=== PATIENT | female | born 1965 | race Hispanic/Latino ===

== ENCOUNTER 2022-02-03 15:58 | Emergency (ER) | payer SELFPAY ==
--- OUTSIDE RECORDS SUMMARY | 2022-02-03 16:02 | XMS REPORT | Continuity of Care Document ---
:1965 Author Organization [facility] t Address [address] [place] [address] Care Team Providers Name Role Phone Donysuni Jessica BARRETT Primary Care Physician Doctor Unassigned, [place] Attending Clinician Unavailable Problems Condition Condition Condition Status Onset Resolution Last Treating Co mments Source Name Details Category Date Date Treatment Clinician Date Diabetes Diabetes Disease Active Unive rs 2-18 ity of 00:00: [place] 00 Medical Branch Contracept Contracept Disease Active Overview : [facility] elodia elodia 08-19 Formattin ity of management management 00:00: g of this [place] 00 note Medical might be Branch different from the original. 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 Social History Social Habit Start Date Stop Date Quantity Comments Source History SDOH [facility] [place] Alcohol Frequency Medical Branch History SDOH [facility] [place] Alcohol Std Drinks Medica l Branch History [facility] [place] Alcohol Binge Medical Bra [facility] Alcohol intake 2016-01-07 2016-01-07 0 /d [facility] 00:00:00 00:00:00 Medical Branch Alcohol Comment 2015-08-19 2015-08-19 on occasion [facility] 00:00:00 00:00:00 Medical Branch Tobacco use and 2015-08-19 2015-08-19 Never used [facility] exposure 00:00:00 00:00:00 Medical Branch History of tobacco 1994-11-20 Smoker [facility] use 00:00:00 Medical Branch Sex Ass[birth year] At [birth year] [facility] y [facility] 00:00:00 00:00:00 Medical Branch Smoking Status Start Date Stop Date Source Former smoker 2015-08-19 00:00:00 2015-08-19 00:00:00 [facility] Medical Branch Medications Ordered Filled Start Stop Current Ordering Indication Dosage Frequency Signature Comments Components Source Medication Medication Date Date Medication? Clinician (SIG) Name Name Lancets Yes [id number] Use as Uni vers (UNILET 2-17 directed ity of LANCET) 00:00: [facility] 00 Medical Branch metFORMIN Yes [id number] 500mg Take 1 Tab Univers (GLUCOPHAGE 2-17 by mouth 2 it y of ) 500 mg 00:00: (two) [place] tablet 00 times Medical daily with Branch meals. Immunizations Ordered Filled Immunization Date Status Comments Sour e Immunization Name Name TDAP 2015-08-19 [facility] 00:00:00 [facility] Procedures Procedure Date / Time Performed Performing Clinician Sour e EXTERNAL PROVIDER - 2021-07-30 05:01:00 Doctor Unassigned, No Un [facility] REFERRAL Name Medical Branch Encounters Start End Encounter Admission Attending Care Care Encounter Source Date/Time Date/Time Type Type Clinicians Facility Department ID 2021-07-30 2021-07-30 Orders Doctor LEAH [id number] [place] [address] 00:00:00 00:00:00 Only Unassigned, EMMANUEL [id number] ity of Clementon [facility] [id number] [facility] as [id number] [place] [address] Branch Results Test Description Test Time Test Comments Results Result Comments Source CULTURE, URINE 2022-01-10 SPECIMEN NUMBER: [id number] CULTURE, URINE SPECIMEN NUMBER: [id number] SPECIMEN COMMENT: URINE SOURCE: URINE REPORT STATUS: FINAL FINAL REPORT: 01/10/2022 50-100,000 CFU/ML UROGENITAL MARCOS PRESENT NO COMMON PATHOGENS ALBUMIN/CREATININE RATIO, URINE, RANDOM 2022-01-10 01:09:19 Test Item Value Reference Range Interpretation Comme nts CREATININE, URINE, RANDOM 91.0 MG/DL NOT ESTAB (test code = 2071) ALBUMIN, URINE, RANDOM (test 3.9 MG/DL NOT ESTAB code = 54666) CALC ALBUMIN/CREAT, RND (test 43 MG/G <30 H Note: Albumin/Creatinine code = 01009) ratio referenc e interval reflects ADA and NKF guidelines. UNLESS OTHERWISE INDIC ATED, ALL TESTING PERFORMED [facility], [facility]. [address] [place], [place] [address] LABORATORY DIRE CTOR: ISMAEL DEVI M.D. CLIA NUMBER [id number] [facility] [place]. [id number] COMPREHENSIVE METABOLIC [id number] 00:56:39 Test Item Value Reference Range Interpretation Comments GLUCOSE (test code = 242 MG/DL 70-99 H 2216) BUN (test code = 20 MG/DL 6-20 2207) CREATININE (test 0.58 MG/DL 0.60-1.30 L code = 2214) eGFR (2020 CKD-EPI) 107 >60 (test code = 91859) ML/MIN/1.73 CALC BUN/CREAT (test 34 RATIO 6-28 H code = 2235) SODIUM (test code = 141 MEQ/L 611-209 8386) POTASSIUM (test code 4.4 MEQ/L 3.5-5.4 = 2227) CHLORIDE (test code 105 MEQ/L 95-107 = 2214) CARBON DIOXIDE (test 22 MEQ/L 19-31 code = 2206) CALCIUM (test code = 9.4 MG/DL 8.5-10.5 2208) PROTEIN, TOTAL (test 7.3 G/DL 6.1-8.3 code = 222) ALBUMIN (test code = 4.3 G/DL 3.5-5.2 2200) CALC GLOBULIN (test 3.0 G/DL 1.9-3.7 code = 2240) CALC A/G RATIO (test 1.4 RATIO 1.0-2.6 code = 2234) BILIRUBIN, TOTAL 0.3 MG/DL See_Comment [Automated message] (test code = 2207) The syste m which generated this result transmit felisha reference range : <=1.2. The refe rence range was not u sed to interpret th is result as normal/abnormal . ALKALINE PHOSPHATASE 141 U/L 40-133 H (test code = 2204) AST (test code = 20 U/L 2217) ALT (test code = 24 U/L 40 2218) LIPID [id number] 00:56:39 Test Item Value Reference Range Interpretation Comments CHOLESTEROL (test 197 MG/DL <200 code = 2210) TRIGLYCERIDES (test 275 MG/DL <150 H code = 2232) HDL CHOLESTEROL (test 46 MG/DL >39 code = 2220) CALC LDL CHOL (test 112 MG/DL <100 H NOTE: C ALCULATED LDL code = 2237) IS BASED ON ANNABELLE-MURO METHOD WHICHINCLUDES ADJUSTABLE TRIGLYCERIDE:VL DL CHOLESTEROL RAT IO.THIS FACTOR VARIES B Y MEASURED TRIGLY CERIDE AND NON-HDLCHOL ESTEROL CONCENTRATIONS WITH INCREASED CALCU LATED LDL SEENIN HIGH ER TRIGLYCERIDE OR LOWER NON-HDL SPECIME NS. FOR MOREINFORMATION , SEE CLIENT ANNOUNCE MENT AT [email or web address] [email or web address] RATIO LDL/HDL 2.43 RATIO <3.22 (test code = 2238) HEMOGLOBIN [id number] 03:33:07 Test Item Value Reference Range Interpretation Comments HEMOGLOBIN A1c (test 10.2 % 4.2-5.6 H [place] [place] DIAB[employer]ES code = 93532) ASSOCIATION IDELINES FOR HGB A1C: PREDIABETES/INC REASED RISK . . . . . . . 5 .7-6.4% DIAGNOSIS O F DIABETES . . . . . . . . . >=6.5% WITH CO NFIRMATION OR APPROPRIATE SYMPTOMS NOTE: ASSAY MA Y BE AFFECTED BY HEMOGLOBINOPATH IES (SICKLE CELL ANEMIA, S-C DISEASE, OTHERS ) OR ARTIFICIALLY LO WERED BY DECREASED RED C ELL SURVIVAL (HEMOLYTIC ANEM IAS, BLOOD LOSS, ETC.) . CONSIDER ALTERNATE TESTI NG OR LABORATORY CONS ULTATION. CBC W/AUTO DIFF WITH [id number] 02:45:00 Test Item Value Reference Range Interpretation Comments WBC (test code = 9.5 K/UL 3.5-11.0 1001) RBC (test code = 4.28 M/UL 3.80-5.40 1002) HEMOGLOBIN (test code 12.8 G/DL 11.5-15.5 = 1003) HEMATOCRIT (test code 38.3 % 34.0-45.0 = 1004) MCV (test code = 89.5 fL 80.0-99.0 1005) MCH (test code = 29.9 PG 25.0-33.0 1006) MCHC (test code = 33.4 G/DL 31.0-36.0 1007) RDW (test code = 12.5 % 11.5-15.0 1038) NEUTROPHILS (test 55.2 % code = 1008) LYMPHOCYTES (test 37.8 % code = 1010) MONOCYTES (test code 5.1 % = 1011) EOSINOPHILS (test 1.3 % code = 1012) BASOPHILS (test code 0.4 % = 1013) IMMATURE GRANULOCYTES 0.2 % (test code = 1036) NUCLEATED RBCS (test 0.0 /100 See_Comment [Autom ated code = 1065) WBC'S message] The sy stem which generated this result transmitted reference range : 0.0. The refere nce range was not u sed to interpret th is result as normal/abnormal . PLATELET COUNT (test 451 K/UL 130-400 H code = 1015) ABSOLUTE NEUTROPHILS 5.24 K/UL 1.50-7.50 (test code = 1066) ABSOLUTE LYMPHOCYTES 3.59 K/UL 1.00-4.00 (test code = 1067) ABSOLUTE MONOCYTES 0.48 K/UL 0.20-1.00 (test code = 1068) ABSOLUTE EOSINOPHILS 0.12 K/UL 0.00-0.50 (test code = 1040) ABSOLUTE BASOPHILS 0.04 K/UL 0.00-0.20 (test code = 1069) ABS IMMATURE 0.02 K/UL 0.00-0.10 GRANULOCYTES (test code = 1020) ABS NUCLEATED RBCS 0.00 K/UL 0.00-0.11 (test code = 68545) SCR MAMM BILATERAL ROBERT CAD [id number] 07:54:57 Name: Xuan : 1965 Sex: F - SCR MAMM BILATERAL ROBERT CAD DIGITALBILATERAL DIGITAL SCREENING MAMMOGRAM 3D/2D WITH CAD: 05/14/2021LINICAL: Asymptomatic. Digital breast tomosynthesis was performed in addition to routine CC and MLO views. Current mammographic images were evaluated by [facility] Image[employer]VEGO CAD (computer-aided detection) software. Comparison is made to exam dated 09/15/2015 mammogram - [facility]. There are scattered fibroglandular tissues in both breasts. There are benign calcifications in both breasts. No suspicious mass, architectural distortion, malignant type calcification, or lymph node abnormality detected. Breast architecture is stable compared to prior exams.IMPRESSION: BENIGNThere is no mammographic evidence of malignancy. Resumeannual screening mammography in one year. David Morrison M.D. et/penrad:05/26/2021 07:54:57 Tax Senior Associate: Cathy Macias MM, [facility] Mammographyletter sent: BIRADS 1-2 Normal Mammogram BI-RADS: 2 Benign
[2022-02-03] MEDS ORDERED: INSULIN -REGULAR HUMAN 50 UNIT/0.5 ML ML ONE (16:22)
--- NOTE | 2022-02-03 17:12 | ER ---
Nurse's Notes [facility] Name: Emili Leblanc Age: 56 yrs Sex: Female : 1965 Arrival Date: 02/03/2022 Time: 16:03 Bed 20 Private MD: Diagnosis: Coronavirus infection, unspecified;Viral pneumonia, unspecified Presentation: 02/03 16:08 Chief complaint: Patient's son or daughter states: she tested POSITIVE for Covid for 12 tw2 days. today she has felt the worse. she has had cough \T\ body aches. and she feels weak. Coronavirus screen: cough unrelated to allergies, fatigue, shortness of breath. Ebola Screen: Patient denies travel to an Ebola-affected area in the 21 days before illness onset. Initial Sepsis Screen: Does the patient meet any 2 criteria? HR > 90 bpm. Does the patient have a suspected source of infection? No. Patient's initial sepsis screen is negative. Risk Assessment: Do you want to hurt yourself or someone else? Patient reports no desire to harm self or others. Note provider NENA Johnson in triage room performing assessment. Onset of symptoms was February 03, 2022. 16:08 Method Of Arrival: Ambulatory tw2 16:08 Acuity: MINERVA 3 tw2 Triage Assessment: 16:11 General: Appears in no apparent distress. uncomfortable, Behavior is calm, cooperative, tw2 appropriate for age. Respiratory: Reports shortness of breath at rest on exertion cough that is non-productive, persistent. Historical: - Allergies: 16:10 No Known Allergies; tw2 - Home Meds: 16:10 Glimepiride Oral [Active]; tw2 - PMHx: 16:10 Diabetes mellitus; Hypertensive disorder; tw2 - PSHx: 16:10 section; tw2 - Immunization history:: Client reports having NOT received the Covid vaccine. - Social history:: Smoking status: Patient denies any tobacco usage or history of. Screenin:24 Abuse screen: Denies threats or abuse. Denies injuries from another. Nutritional ab2 screening: No deficits noted. Tuberculosis screening: No symptoms or risk factors identified. Fall Risk None identified. Assessment: 16:23 General: Appears in no apparent distress. comfortable, Behavior is calm, cooperative, ab2 appropriate for age. Pain: Denies pain. 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 Gait is steady, Speech is normal. Cardiovascular: Denies chest pain, Heart tones S1 S2 present Patient's skin is warm and dry. Respiratory: Airway is patent Respiratory effort is even, unlabored, Respiratory pattern is regular, symmetrical, Breath sounds are clear bilaterally. Respiratory: Reports cough that is pain with cough pain with respiration. GI: Abdomen is round non-distended, Bowel sounds present X 4 quads. Reports diarrhea. : No deficits noted. No signs and/or symptoms were reported regarding the genitourinary system. EENT: No deficits noted. No signs and/or symptoms were reported regarding the EENT system. Reports nasal congestion. Derm: Skin is intact, is healthy with good turgor, Skin is dry, Skin is pink, warm \T\ dry. Musculoskeletal: Reports weakness in entire body. Vital Signs: 16:08 BP 136 / 78; Pulse 103; Resp 17; Temp 98.8(TE); Pulse Ox 93% on R/A; tw2 17:10 BP 131 / 77; Pulse 81; Resp 17; Pulse Ox 98% on R/A; ab2 18:04 BP 123 / 83; Pulse 89; Resp 17; Pulse Ox 99% on R/A; ab2 ED Course: 16:03 Patient arrived in ED. kz 16:07 [facility]C [facility] kb 16:07 Ant Bernard MD is Attending Physician. kb 16:10 Triage completed. tw2 16:12 Arm band placed on. tw2 16:22 Sadi León is Primary Nurse. ab2 16:24 Patient has correct armband on for positive identification. Placed in gown. Bed in low ab2 position. Call light in reach. Side rails up X2. 16:24 No provider procedures requiring assistance completed. ab2 16:40 Chest Pa And Lat (2 Views) XRAY In Process Unspecified. EDMS 18:05 Patient did not have IV access during this emergency room visit. ab2 Administered Medications: 18:04 Drug: Zithromax (azithromycin) 500 mg Route: PO; ab2 18:05 Follow up: Response: No adverse reaction ab2 Outcome: 17:11 Discharge ordered by . jv 18:05 Discharged to home ambulatory, with family. ab2 18:05 Condition: good 18:05 Discharge instructions given to patient, Instructed on discharge instructions, follow up and referral plans. medication usage, Demonstrated understanding of instructions, follow-up care, medications, Prescriptions given X 1. 18:07 Patient left the ED. ab2 Signatures: Dispatcher [employer] EDID Elizabeth Early, NENA-C MACHINE STRIPPER CUTTER-Alisha Lopez RN RN tw2 Sadi León ab2 Bernie Meehan Corrections: (The following items were deleted from the chart) 16:11 16:10 Allergies: No Known Allergies; tw2 tw2
--- NOTE | 2022-02-03 17:12 | EDPHYS ---
Physician Documentation [facility] Name: Emili Leblanc Age: 56 yrs Sex: Female : 1965 Arrival Date: 02/03/2022 Time: 16:03 Bed 20 Private MD: ED Physician Ant Bernard HPI: 02/03 17:08 This 56 yrs old Female presents to ER via Ambulatory with complaints of Positive at kb home covid test, Cough. 17:08 The patient or guardian reports cough, that is intermittent, described as mild, flu kb symptoms, myalgias. Onset: The symptoms/episode began/occurred 12 day(s) ago. Severity of symptoms: At their worst the symptoms were moderate, in the emergency department the symptoms are unchanged. Modifying factors: The symptoms are alleviated by nothing, the symptoms are aggravated by nothing. Associated signs and symptoms: The patient has no apparent associated signs or symptoms. The patient has not experienced similar symptoms in the past. The patient has not recently seen a physician. Pt reports she has had covid for 12 days. Came in today for continued cough and body aches. States she checked her oxygen sat at home and it was 93%. . Historical: - Allergies: 16:10 No Known Allergies; tw2 - Home Meds: 16:10 Glimepiride Oral [Active]; tw2 - PMHx: 16:10 Diabetes mellitus; Hypertensive disorder; tw2 - PSHx: 16:10 section; tw2 - Immunization history:: Client reports having NOT received the Covid vaccine. - Social history:: Smoking status: Patient denies any tobacco usage or history of. ROS: 16:57 Cardiovascular: Negative for chest pain, palpitations, and edema. kb 16:57 Constitutional: Positive for body aches, fatigue, malaise. 16:57 Respiratory: Positive for cough, Negative for dyspnea on exertion, hemoptysis, orthopnea, pleurisy, shortness of breath, sputum production, wheezing. 16:57 All other systems are negative. Exam: 16:58 Constitutional: This is a well developed, well nourished patient who is awake, alert, kb and in no acute distress. Head/Face: Normocephalic, atraumatic. ENT: Moist Mucous membranes Cardiovascular: Regular rate and rhythm with a normal S1 and S2. No gallops, murmurs, or rubs. No pulse deficits. Respiratory: Respirations even and unlabored. No increased work of breathing. Talking in full sentences Abdomen/GI: Soft, non-tender. No distention Skin: Warm, dry with normal turgor. Normal color. MS/ Extremity: Pulses equal, no cyanosis. Neurovascular intact. Full, normal range of motion. Neuro: Awake and alert, GCS 15, oriented to person, place, time, and situation. Moves all extremities. Normal gait. Vital Signs: 16:08 BP 136 / 78; Pulse 103; Resp 17; Temp 98.8(TE); Pulse Ox 93% on R/A; tw2 17:10 BP 131 / 77; Pulse 81; Resp 17; Pulse Ox 98% on R/A; ab2 18:04 BP 123 / 83; Pulse 89; Resp 17; Pulse Ox 99% on R/A; ab2 MDM: 16:10 Patient medically screened. kb 16:57 Data reviewed: vital signs, nurses notes. Data interpreted: Pulse oximetry: on room air kb is 93 %. Interpretation: normal. Counseling: I had a detailed discussion with the patient and/or guardian regarding: the historical points, exam findings, and any diagnostic results supporting the discharge/admit diagnosis, radiology results, the need for outpatient follow up, a family practitioner, to return to the emergency department if symptoms worsen or persist or if there are any questions or concerns that arise at home. 02/03 16:11 Order name: Chest Pa And Lat (2 Views) XRAY; Complete Time: 17:18 kb Administered Medications: 18:04 Drug: Zithromax (azithromycin) 500 mg Route: PO; ab2 18:05 Follow up: Response: No adverse reaction ab2 Disposition: 02/04 09:24 Co-signature as Attending Physician, Elizabeth HERNANDEZ I agree with the assessment [id number] and plan of care. PA/1ST PRESSMAN's history reviewed, patient interviewed, and examined. I agree with assessment and care plan and confirm the diagnosis (es) above. Disposition Summary: 02/03/22 17:11 Discharge Ordered Location: Home kb Condition: Stable kb Diagnosis - Coronavirus infection, unspecified kb - Viral pneumonia, unspecified kb Followup: kb - With: Emergency Department - When: As needed - Reason: Worsening of condition Followup: kb - With: Private Physician - When: 2 - 3 days - Reason: Recheck today's complaints, Continuance of care, Re-evaluation by your physician Discharge Instructions: - Discharge Summary Sheet kb - Viral Respiratory Infection, Hurw-Dl-Vuel kb - COVID-19 kb Forms: - Medication Reconciliation Form kb - Thank You Letter kb - Antibiotic Education kb - Prescription Opioid Use kb Prescriptions: - Zithromax 500 mg Oral Tablet - take 1 tablet by ORAL route once daily for 5 days; 5 tablet; Refills: 0, kb Product Selection Permitted - Tessalon Perles 100 mg Oral Capsule - take 1 capsule by ORAL route every 8 hours As needed; 15 capsule; Refills: 0, kb Product Selection Permitted Signatures: Dispatcher [employer] EDElizabeth Glaser, NENA-C CREDIT COLLECTIONS SPECIALIST-Alisha Lopez RN RN tw2 Sadi León [facility] Ant Bernard MD MD [email or web address] Corrections: (The following items were deleted from the chart) 02/03 16:11 16:10 Allergies: No Known Allergies; 2 2
--- NOTE | 2022-02-03 17:15 | RAD REPORT ---
EXAM DESCRIPTION: RAD - Chest Pa And Lat (2 Views) - 02/03/2022 4:40 pm CLINICAL HISTORY: COUGH, COVID positive COMPARISON: None TECHNIQUE: Frontal and lateral views of the chest were obtained. FINDINGS: The lungs are underinflated. Patchy airspace opacities are present peripheral distribution of the left lung field and left base. Interstitial markings are prominent throughout both lung field s. Findings are nonspecific but would be consistent with COVID-19 pneumonia. No failure or volume ove rload. Heart size is normal and central vasculature is within normal limits. No pleural effusion or pneu mothorax seen. No acute bony finding noted. No aortic abnormality. IMPRESSION: Left greater than right lung field pneumonia findings consistent the COVID-19 Diagnosis.
[2022-02-03] MEDS ORDERED: AZITHROMYCIN 250 MG TAB ONE (18:06)
[2022-02-03 18:18] VITALS: TEMP 98.8
[2022-02-03 18:23] VITALS: BP 123/83; O2SAT 99
== END 2022-02-03 18:07 | disposition home or self-care (01) ==
LOC: ER 15:58
DX: U07.1 COVID-19 (principal); J12.9 Viral pneumonia, unspecified; E11.9 Type 2 diabetes mellitus without complications; I10 Essential (primary) hypertension
CPT/HCPCS: 71046; 99283

== ENCOUNTER 2022-02-25 09:43 | Emergency (ER) | payer SELFPAY ==
--- OUTSIDE RECORDS SUMMARY | 2022-02-25 09:47 | XMS REPORT | Continuity of Care Document ---
:[address] [facility] t Address [facility] [address] [place] [id number] Care Team Providers Name Role Phone Unavailable Unavailable Unavailable Problems This patient has no known problems. Allergies, Adverse Reactions, Alerts This patient has no known allergies or adverse reactions. Medications This patient has no known medications. Procedures This patient has no known procedures. Results Test Description Test Time Test Comments Results Result Comments Source CULTURE, URINE 2022-01-10 SPECIMEN NUMBER: [id number] CULTURE, URINE SPECIMEN NUMBER: [id number] SPECIMEN COMMENT: URINE SOURCE: URINE REPORT STATUS: FINAL FINAL REPORT: 01/10/2022 50-100,000 CFU/ML UROGENITAL MARCOS PRESENT NO COMMON PATHOGENS ALBUMIN/CREATININE RATIO, URINE, RANDOM 2022-01-10 01:09:19 Test Item Value Reference Range Interpretation Comme nts CREATININE, URINE, RANDOM 91.0 MG/DL NOT ESTAB (test code = 2072) ALBUMIN, URINE, RANDOM (test 3.9 MG/DL NOT ESTAB code = 31795) CALC ALBUMIN/CREAT, RND (test 43 MG/G <30 H Note: Albumin/Creatinine code = 99534) ratio referenc e interval reflects ADA and NKF guidelines. UNLESS OTHERWISE INDIC ATED, ALL TESTING PERFORMED [facility], [facility]. [address] [place] [address] LABORATORY DIRE CTOR: ISMAEL DEVI M.D. CLIA NUMBER [id number] [place]. [id number] COMPREHENSIVE METABOLIC [id number] 00:56:39 Test Item Value Reference Range Interpretation Comments GLUCOSE (test code = 242 MG/DL 70-99 H 2216) BUN (test code = 20 MG/DL 6-20 2207) CREATININE (test 0.58 MG/DL 0.60-1.30 L code = 2214) eGFR (2020 CKD-EPI) 107 >60 (test code = 08213) ML/MIN/1.73 CALC BUN/CREAT (test 34 RATIO 6-28 H code = 2235) SODIUM (test code = 141 MEQ/L 749-193 3631) POTASSIUM (test code 4.4 MEQ/L 3.5-5.4 = 2227) CHLORIDE (test code 105 MEQ/L 95-107 = 221) CARBON DIOXIDE (test 22 MEQ/L 19-31 code = 220) CALCIUM (test code = 9.4 MG/DL 8.5-10.5 2208) PROTEIN, TOTAL (test 7.3 G/DL 6.1-8.3 code = 222) ALBUMIN (test code = 4.3 G/DL 3.5-5.2 2200) CALC GLOBULIN (test 3.0 G/DL 1.9-3.7 code = 224) CALC A/G RATIO (test 1.4 RATIO 1.0-2.6 code = 223) BILIRUBIN, TOTAL 0.3 MG/DL See_Comment [Automated message] (test code = 2206) The syste m which generated this result transmit felisha reference range : <=1.2. The refe rence range was not u sed to interpret th is result as normal/abnormal . ALKALINE PHOSPHATASE 141 U/L 40-133 H (test code = 2203) AST (test code = 20 U/L 9-40 2217) ALT (test code = 24 U/L 5-40 2218) LIPID [id number] 00:56:39 Test Item Value Reference Range Interpretation [...] MOREINFORMATION , SEE CLIENT ANNOUNCE MENT AT [email or web address] [email or web address] LDL/HDL 2.43 RATIO <3.22 (test code = 2238) HEMOGLOBIN [id number] 03:33:07 Test Item Value Reference Range Interpretation Comments HEMOGLOBIN A1c (test 10.2 % 4.2-5.6 H CITIZEN OF [place] DIABETES code = 30790) ASSOCIATION IDELINES FOR HGB A1C: PREDIABETES/INC REASED [...] LABORATORY CONS ULTATION. CBC W/AUTO DIFF WITH [id number] 02:45:00 Test Item Value Reference Range Interpretation [...] RBCS 0.00 K/UL 0.00-0.11 (test code = 89297) SCR MAMM BILATERAL ROBERT CAD [id number] 07:54:57 Name: Xuan : 1965 Sex: F - SCR MAMM BILATERAL ROBERT CAD DIGITALBILATERAL DIGITAL SCREENING MAMMOGRAM 3D/2D WITH CAD: 05/14/2021LINICAL: Asymptomatic. Digital breast tomosynthesis was performed in addition to routine CC and MLO views. Current mammographic images were evaluated by [employer] CAD (computer-aided detection) software. Comparison is made to exam dated 09/15/2015 mammogram - [facility]. There are scattered fibroglandular tissues in both breasts. There are benign calcifications in both breasts. No suspicious mass, architectural distortion, malignant type calcification, or lymph node abnormality detected. Breast architecture is stable compared to prior exams.IMPRESSION: BENIGNThere is no mammographic evidence of malignancy. Resumeannual screening mammography in one year. David Morrison M.D. et/penrad:05/26/2021 07:54:57 Junior Account Manager: Cathy Macias MM, [facility] [place] Mobile Mammographyletter sent: BIRADS 1-2 Normal Mammogram BI-RADS: 2 Benign
[2022-02-25] MEDS ORDERED: NA CHLORIDE 0.9% 1,000 ML ONE (11:09)
[2022-02-25] MEDS ORDERED: LACTULOSE 20 GM/30 ML UCUP ONE (11:09)
[2022-02-25] MEDS ORDERED: BISACODYL 10 MG RECTAL SUPP ONE (11:09)
[2022-02-25 11:13] LABS: Absolute Lymphocytes (CBC) 2.2 K/uL (0.7-4.9); Hematocrit 37.7 % (36.0-45.0); Lymphocytes % 24.6 % (15.3-44.8); MPV 8.9 fL (7.6-11.3)
[2022-02-25 11:32] LABS: ALT/SGPT 38 U/L (12-78); AST/SGOT 22 U/L (15-37); Albumin 3.6 g/dL (3.4-5.0); Alkaline Phosphatase 98 U/L (45-117); BUN Blood Urea Nitrogen 13 mg/dL (7-18); Bicarbonate 26 mmol/L (21-32); Bilirubin Total 0.6 mg/dL (0.2-1.0); Glucose Level 164 mg/dL (74-106); Lipase 90 U/L (73-393); Potassium 3.6 mmol/L (3.5-5.1); Protein, Total 7.9 g/dL (6.4-8.2); Sodium Level 137 mmol/L (136-145)
--- NOTE | 2022-02-25 12:03 | ER ---
Nurse's Notes [facility] Name: Emili Leblanc Age: 56 yrs Sex: Female : 1965 Arrival Date: 02/25/2022 Time: 09:47 Bed 15 Private MD: Diagnosis: Constipation;Abdominal pain, Generalized Presentation: 02/25 10:09 Chief complaint: Patient states: "I have not been misty to have a bowel movement in 4 ab2 days. It feels like I have to go but I cant." Pt c/o lower abdominal pain and constipation for 4 days. Denies fever, chills n/v. Coronavirus screen: Vaccine status: Patient reports being unvaccinated. Client denies travel out of the [place] in the last 14 days. At this time, the client does not indicate any symptoms associated with coronavirus-19. Ebola Screen: Patient negative for fever greater than or equal to 101.5 degrees Fahrenheit, and additional compatible Ebola Virus Disease symptoms Patient denies exposure to infectious person. Patient denies travel to an Ebola-affected area in the 21 days before illness onset. No symptoms or risks identified at this time. Initial Sepsis Screen: Does the patient meet any 2 criteria? No. Patient's initial sepsis screen is negative. Does the patient have a suspected source of infection? No. Patient's initial sepsis screen is negative. Risk Assessment: Do you want to hurt yourself or someone else? Patient reports no desire to harm self or others. Onset of symptoms is unknown. 10:09 Method Of Arrival: Ambulatory ab2 10:09 Acuity: MINERVA 3 ab2 Triage Assessment: 10:10 General: Appears in no apparent distress. uncomfortable, Behavior is calm, appropriate ab2 for age. Pain: Complains of pain in right lower quadrant and left lower quadrant. Neuro: Level of Consciousness is awake, alert, obeys commands, Oriented to person, place, time, situation, Appropriate for age. Respiratory: Airway is patent Respiratory effort is even, unlabored, Respiratory pattern is regular, symmetrical. GI: Reports lower abdominal pain. Historical: - Allergies: 10:10 No Known Allergies; ab2 - PMHx: 10:10 diabetes mellitus; Hypertensive disorder; ab2 - PSHx: 10:10 section; ab2 - Immunization history:: Adult Immunizations up to date. - Social history:: Smoking status: Patient denies any tobacco usage or history of. - Family history:: not pertinent. Screenin:10 Abuse screen: Denies threats or abuse. Denies injuries from another. Nutritional ww screening: No deficits noted. Tuberculosis screening: No symptoms or risk factors identified. Fall Risk None identified. Assessment: 11:10 General: Appears uncomfortable, Behavior is cooperative. Pain: Complains of pain in ww abdomen. Neuro: Level of Consciousness is awake, alert, obeys commands, Oriented to person, place, time, situation, Moves all extremities. Cardiovascular: Patient's skin is warm and dry. Respiratory: Airway is patent Respiratory effort is even, unlabored, Respiratory pattern is regular, symmetrical. GI: Abdomen is round firm, non-tender. : No signs and/or symptoms were reported regarding the genitourinary system. Derm: No signs and/or symptoms reported regarding the dermatologic system. Skin is healthy with good turgor. 11:11 GI: Reports constipation. ww 12:10 Reassessment: Patient appears in no apparent distress at this time. No changes from ww previously documented assessment. Patient and/or family updated on plan of care and expected duration. Pain level reassessed. Patient is alert, oriented x 3, equal unlabored respirations, skin warm/dry/pink. 12:45 Reassessment: patient had a bowel movement. ww 13:24 Reassessment: Patient appears in no apparent distress at this time. Patient and/or ww family updated on plan of care and expected duration. Pain level reassessed. Patient is alert, oriented x 3, equal unlabored respirations, skin warm/dry/pink. patient instructed on urine sample multiple times. Patient states feeling better. 14:45 Reassessment: Patient appears in no apparent distress at this time. No changes from ww previously documented assessment. Patient and/or family updated on plan of care and expected duration. Pain level reassessed. Patient is alert, oriented x 3, equal unlabored respirations, skin warm/dry/pink. Vital Signs: 10:09 BP 148 / 81; Pulse 63; Resp 18; Temp 98.2; Pulse Ox 100% on R/A; Weight 71.67 kg; ab2 Height 5 ft. 0 in. (152.40 cm); Pain 7/10; 10:09 Body Mass Index 30.86 (71.67 kg, 152.40 cm) ab2 ED Course: 09:47 Patient arrived in ED. mr 10:10 Triage completed. ab2 10:11 Arm band placed on left wrist. ab2 10:13 Lew Simpson MD is Attending Physician. [facility] 11:00 Helena Oreilly, RN is Primary Nurse. ww 11:00 Missed attempt(s): 20 gauge in left forearm. Bleeding controlled, band aid applied, eh3 catheter tip intact. 11:02 Inserted saline lock: 20 gauge in right antecubital area, using aseptic technique. 3 11:02 Initial lab(s) drawn, by me, sent to lab. eh3 11:10 Patient has correct armband on for positive identification. Call light in reach. ww patient wanting to sit in the chair due to abdomen hurting and the feeling of the needing to go to the bathroom. 11:10 No provider procedures requiring assistance completed. ww 12:02 Angel Dunbar DO is Referral Physician. [facility] 13:00 CT Abd/Pelvis - PO and IV Contrast In Process Unspecified. EDIL 14:00 Neno Chisholm MD is Referral Physician. cp 14:48 IV discontinued, bleeding controlled, No redness/swelling at site. Pressure dressing ww applied. Administered Medications: 11:16 Drug: Dulcolax (bisacodyl) Suppository 10 mg Route: OH; 11:16 Drug: Lactulose 60 grams Volume: 45 ml; Route: PO; 11:17 Drug: NS 0.9% 1000 ml Route: IV; Rate: 1 bolus; Site: right antecubital; 14:22 Drug: Rocephin (cefTRIAXone) 1 grams Route: IV; Rate: per protocol; Site: right ww antecubital; Outcome: 12:02 Discharge ordered by . [facility] 14:00 Discharge ordered by . cp 14:48 Discharged to home ambulatory. ww 14:48 Condition: stable 14:48 Discharge instructions given to patient, Instructed on discharge instructions, follow up and referral plans. medication usage, Demonstrated understanding of instructions, follow-up care, medications, Prescriptions given X 3. 14:49 Patient left the ED. Signatures: Dispatcher [employer] EDIL Lew Simpson MD MD cha Rivera, Mary mr Page, Lew, Helena Doll cp, RN RN Sadi Rudolph2 Louie, Danya eh3 Corrections: (The following items were deleted from the chart) : Missed attempt(s): 20 gauge in left forearm. Bleeding controlled, band aid eh3 applied, catheter tip intact. eh3 : Inserted saline lock: 20 gauge in right antecubital area, using aseptic eh3 technique. eh3
--- NOTE | 2022-02-25 12:04 | EDPHYS ---
Physician Documentation [facility] Name: Emili Leblanc Age: 56 yrs Sex: Female : 1965 Arrival Date: 02/25/2022 Time: 09:47 Bed 15 Private MD: ED Physician Lew Simpson HPI: 02/25 10:20 This 56 yrs old Female presents to ER via Ambulatory with complaints of nora Constipation. 10:20 The patient presents with abdominal pain in the upper abdomen, in the lower abdomen, nora abdominal distention in the upper abdomen, in the lower abdomen. Onset: The symptoms/episode began/occurred 2 day(s) ago. The symptoms do not radiate. Associated signs and symptoms: Pertinent positives: constipation. The symptoms are described as crampy. Modifying factors: The symptoms are alleviated by nothing, the symptoms are aggravated by nothing. Severity of pain: At its worst the pain was moderate in the emergency department the pain has resolved. The patient has not experienced similar symptoms in the past. Historical: - Allergies: 10:10 No Known Allergies; ab2 - PMHx: 10:10 diabetes mellitus; Hypertensive disorder; ab2 - PSHx: 10:10 section; ab2 - Immunization history:: Adult Immunizations up to date. - Social history:: Smoking status: Patient denies any tobacco usage or history of. - Family history:: not pertinent. ROS: 10:20 Constitutional: Negative for fever, chills, and weight loss, Eyes: Negative for injury, nora pain, redness, and discharge, ENT: Negative for injury, pain, and discharge, Neck: Negative for injury, pain, and swelling, Cardiovascular: Negative for chest pain, palpitations, and edema, Respiratory: Negative for shortness of breath, cough, wheezing, and pleuritic chest pain, Back: Negative for injury and pain, : Negative for injury, bleeding, discharge, and swelling, MS/Extremity: Negative for injury and deformity, Skin: Negative for injury, rash, and discoloration, Neuro: Negative for headache, weakness, numbness, tingling, and seizure, Psych: Negative for depression, anxiety, suicide ideation, homicidal ideation, and hallucinations, Allergy/Immunology: Negative for hives, rash, and allergies, Endocrine: Negative for neck swelling, polydipsia, polyuria, polyphagia, and marked weight changes, Hematologic/Lymphatic: Negative for swollen nodes, abnormal bleeding, and unusual bruising. 10:20 Abdomen/GI: Positive for constipation, abdominal cramps, abdominal distension. Exam: 10:20 Constitutional: This is a well developed, well nourished patient who is awake, alert, nora and in no acute distress. Head/Face: Normocephalic, atraumatic. Eyes: Pupils equal round and reactive to light, extra-ocular motions intact. Lids and lashes normal. Conjunctiva and sclera are non-icteric and not injected. Cornea within normal limits. Periorbital areas with no swelling, redness, or edema. ENT: Nares patent. No nasal discharge, no septal abnormalities noted. Tympanic membranes are normal and external auditory canals are clear. Oropharynx with no redness, swelling, or masses, exudates, or evidence of obstruction, uvula midline. Mucous membranes moist. Neck: Trachea midline, no thyromegaly or masses palpated, and no cervical lymphadenopathy. Supple, full range of motion without nuchal rigidity, or vertebral point tenderness. No Meningismus. Chest/axilla: Normal chest wall appearance and motion. Nontender with no deformity. No lesions are appreciated. Cardiovascular: Regular rate and rhythm with a normal S1 and S2. No gallops, murmurs, or rubs. Normal PMI, no JVD. No pulse deficits. Respiratory: Lungs have equal breath sounds bilaterally, clear to auscultation and percussion. No rales, rhonchi or wheezes noted. No increased work of breathing, no retractions or nasal flaring. Abdomen/GI: Soft, non-tender, with normal bowel sounds. No distension or tympany. No guarding or rebound. No evidence of tenderness throughout. Back: No spinal tenderness. No costovertebral tenderness. Full range of motion. Skin: Warm, dry with normal turgor. Normal color with no rashes, no lesions, and no evidence of cellulitis. MS/ Extremity: Pulses equal, no cyanosis. Neurovascular intact. Full, normal range of motion. Neuro: Awake and alert, GCS 15, oriented to person, place, time, and situation. Cranial nerves II-XII grossly intact. Motor strength 5/5 in all extremities. Sensory grossly intact. Cerebellar exam normal. Normal gait. Psych: Awake, alert, with orientation to person, place and time. Behavior, mood, and affect are within normal limits. 10:20 Abdomen/GI: Inspection: distension, that is mild, Bowel sounds: normal, Palpation: mild abdominal tenderness, in all quadrants, Liver: no appreciated palpable abnormalities, Hernia: not appreciated. Vital Signs: 10:09 BP 148 / 81; Pulse 63; Resp 18; Temp 98.2; Pulse Ox 100% on R/A; Weight 71.67 kg; ab2 Height 5 ft. 0 in. (152.40 cm); Pain 05/29; 10:09 Body Mass Index 30.86 (71.67 kg, 152.40 cm) ab2 MDM: 10:13 Patient medically screened. [facility] 10:23 Differential diagnosis: bowel obstruction, Cholelithiasis, diverticulitis, non-specific nora abd pain, pancreatitis, Peptic Ulcer Disease, Pyelonephritis, Ureterolithiasis, urinary tract infection. Data reviewed: vital signs, nurses notes, lab test result(s), CBC, electrolytes, hepatic panel, radiologic studies, CT scan. Data interpreted: hall monitor: rate is 63 beats/min, rhythm is regular, Pulse oximetry: on room air is 100 %. Test interpretation: by ED physician or midlevel provider:. Counseling: I had a detailed discussion with the patient and/or guardian regarding: the historical points, exam findings, and any diagnostic results supporting the discharge/admit diagnosis, lab results, radiology results. 02/25 10:20 Order name: CBC with Diff; Complete Time: 11:59 [facility] 02/25 10:20 Order name: CMP; Complete Time: 11:59 [facility] 02/25 10:20 Order name: Lipase; Complete Time: 11:59 [facility] 02/25 10:20 Order name: CT Abd/Pelvis - PO and IV Contrast; Complete Time: 13:28 [facility] 02/25 13:51 Order name: Urine Culture [facility] 02/25 14:12 Order name: Urine Dipstick-Ancillary EDAK 02/25 10:20 Order name: IV Saline Lock; Complete Time: 11:00 [facility] 02/25 10:20 Order name: Labs collected and sent; Complete Time: 11:00 [facility] 02/25 10:20 Order name: Urine Dipstick-Ancillary (obtain specimen); Complete Time: 14:18 [facility] 02/25 10:20 Order name: Urine Test (obtain specimen); Complete Time: 14:38 [facility] 02/25 12:06 Order name: Rigo. Order: get ua please; Complete Time: 14:18 nora Administered Medications: 11:16 Drug: Dulcolax (bisacodyl) Suppository 10 mg Route: MD; ww 11:16 Drug: Lactulose 60 grams Volume: 45 ml; Route: PO; ww 11:17 Drug: NS 0.9% 1000 ml Route: IV; Rate: 1 bolus; Site: right antecubital; ww 14:22 Drug: Rocephin (cefTRIAXone) 1 grams Route: IV; Rate: per protocol; Site: right ww antecubital; Disposition Summary: 02/25/22 14:00 Discharge Ordered Location: Home(02/25/22 14:00) cp Problem: new(02/25/22 14:00) cp Symptoms: have improved(02/25/22 14:00) cp Condition: Stable(02/25/22 14:00) cp Diagnosis - Constipation(02/25/22 14:00) cp - Abdominal pain, Generalized(02/25/22 14:00) cp Followup: nora - With: Private Physician - When: 2 - 3 days - Reason: Recheck today's complaints, Continuance of care, Re-evaluation by your physician Followup: nora - With: - When: 2 - 3 days - Reason: Recheck today's complaints, Continuance of care, Re-evaluation by your physician Discharge Instructions: - Discharge Summary Sheet nora - Abdominal Pain, Adult nora - Constipation, Adult nora - Constipation, Adult, [id number] nora - Abdominal Pain, Adult, [id number] nora Forms: - Medication Reconciliation Form cp - Thank You Letter cp - Antibiotic Education cp - Prescription Opioid Use cp Prescriptions: - dicyclomine 20 mg Oral Tablet - take 1 tablet by ORAL route 4 times per day; 28 tablet; Refills: 0, Product nora Selection Permitted - Dulcolax (bisacodyl) 10 mg Rectal suppository - insert 1 suppository by RECTAL route once daily as needed for constipation; 10 cp suppository; Refills: 0, Product Selection Permitted - Miralax 17 gram Oral powder in packet - take 1 packet by ORAL route every 12 hours; 28 packet; Refills: 0, Product cp Selection Permitted - Bactrim DS 800-160 mg Oral Tablet - take 1 tablet by ORAL route every 12 hours for 7 days; 14 tablet; Refills: 0, nora Product Selection Permitted Signatures: Dispatcher [employer] Lew Pichardo MD MD cha Page, Corey PA Helena Pizano cp, RN RN Sadi Rudolph Corrections: (The following items were deleted from the chart) 12:38 12:02 Home [facility] :38 12:02 new [facility] : 12:02 have improved nora [facility] :38 12:02 Stable [facility] :38 12:02 Constipation [facility] : 12:02 Abdominal pain, Generalized nora nora 14:18 13:48 Misc. Order ordered. nora gutierrez
--- NOTE | 2022-02-25 13:27 | RAD REPORT ---
EXAM DESCRIPTION: CT - Abdomen Pelvis W Contrast - 02/25/2022 12:59 pm CLINICAL HISTORY: ABD PAIN COMPARISON: No comparisons TECHNIQUE: Biphasic, helical CT imaging of the abdomen and pelvis was performed following 100 ml non -ionic IV contrast. Oral contrast was administered. All CT scans are performed using dose optimization technique as appropriate and may include automated exposure control or mA/KV adjustment according to patient size. FINDINGS: No suspicious findings in the lung bases. Liver attenuation is borderline for fatty infiltration. No focal liver lesion identified. No portal v ein abnormality. Pancreas and spleen show no acute or suspicious finding. Gallbladder and biliary susan e are also without suspicious finding. Renal function is symmetric. Both kidneys show subtle areas of decreased renal parenchymal enhancemen t. A very minimal or early pyelonephritis cannot be excluded. Correlation is needed with clinical pre sentation and any UA abnormalities. Patient has an 8 millimeter cyst in the upper pole of the right k idney. In the lateral inferior right kidney there is an 8 millimeter mass at the capsular margin that does not show simple cyst characteristics. Arterial attenuation value is 70 HU with the venous phase attenuation 92 HU. No calcifications. No hydronephrosis. No bladder abnormalities. No adrenal abnorm alities. Uterus and ovaries show no suspicious findings. No gastric dilatation or gastric wall thickening. Multiple fluid-filled nondilated small bowel loops are present primarily proximal ileum and the jejunum. No wall thickening or edema. The appendix is no rmal and filled with contrast material. Large amount of stool is present in the colon distending but not dilating the entirety of the colon. No colon wall thickening or mass identifiable. CT assessment has inherent limitation near the level of the anus. No free air, free fluid or inflammatory stranding. No hernia, mass or bulky lymphadenopathy. No suspicious bony findings. IMPRESSION: Subtle heterogeneity of the renal parenchymal enhancement. This is probably baseline for the patient the very minimal or early pyelonephritis cannot be excluded. Correlation is needed with clinical presentation and any UA abnormality. The patient does have a small 8 mm mass in the lateral lower right kidney that does not meet simple c yst characteristics. This is likely too small to be definitively evaluated with sonography. Follow-up renal protocol CT in 6-12 months recommended to monitor for any changes in this small mass. Nondilated fluid-filled small bowel loops are present and may reflect a nonspecific enteritis. The ap pendix is normal. Patient has a constipation pattern with a large amount of stool present filling but not dilating the colon.
[2022-02-25] MEDS ORDERED: CEFTRIAXONE 1000 MG/VIAL ONE (14:11)
[2022-02-25] MEDS ORDERED: NA CHLORIDE 0.9% 100 ML IV ONE (14:11)
[2022-02-25 14:12] LABS: Urine Blood Trace-intact (Negative); Urine Glucose Negative (Negative); Urine Protein Negative (Negative); Urine Specific Gravity 1.015 (1.005-1.030)
[2022-02-25 17:02] VITALS: BP 148/81; TEMP 98.2; O2SAT 100
== END 2022-02-25 14:49 | disposition home or self-care (01) ==
LOC: ER 09:43
DX: K59.00 Constipation, unspecified (principal); E11.9 Type 2 diabetes mellitus without complications; I10 Essential (primary) hypertension
CPT/HCPCS: 36415; 74177; 80053; 81003; 83690; 85025; 87086; 87088; 96374; 99284; J7030; Q9967